=== PATIENT | female | born 1960 ===

== ENCOUNTER 2024-01-26 06:30 | Day surgery (SDC) | payer BC ==
[~2024-01-26 06:30] MED LIST: Sodium Chloride 0.9% 10 ML Syringe FLUSH PRN; Sodium Chloride 0.9% 10 ML Syringe FLUSH SCH
[2024-01-26] MEDS ORDERED: fentaNYL 100 MCG/2 ML SDV ONE (06:47)
[2024-01-26] MEDS ORDERED: Midazolam 1 MG/ML 2 ML SDV ONE (06:47)
[2024-01-26] MEDS ORDERED: Lidocaine 1% 2 ML ONE (06:48)
[2024-01-26] MEDS ORDERED: Rocuronium 50 MG/5 ML Vial ONE (06:49)
[2024-01-26] MEDS ORDERED: Propofol 200 MG/20 ML SDV ONE (06:49)
[2024-01-26] MEDS ORDERED: ceFAZolin 2 GM Vial ONE (06:50)
[2024-01-26] MEDS ORDERED: EPINEPHrine 1 MG/ML SDV ONE (06:53)
[2024-01-26] MEDS ORDERED: Ropivacaine 0.5% 5 MG/ML 30 ML SDV ONE (06:54)
[2024-01-26] MEDS: Lactated Ringers 1,000 ML IV SCH (07:00)
[2024-01-26 07:26] LABS: INR 0.97; PROTHROMBIN TIME 10.4 SECONDS (9.7-12.0)
[2024-01-26 07:28] LABS: PTT,PARTIAL THROMBOPLSTIN TIME 28.9 SECONDS (21.7-31.4)
[2024-01-26] MEDS ORDERED: fentaNYL 250 MCG/5 ML SDV ONE (08:47)
[2024-01-26] MEDS ORDERED: Ondansetron 4 MG/2 ML SDV ONE (09:13)
[2024-01-26] MEDS ORDERED: Ketorolac 30 MG/ML SDV ONE (09:13)
[2024-01-26] MEDS: Vancomycin 1 GM SDV ONE (09:15)
[2024-01-26] MEDS: Tranexamic Acid 1,000 MG/10 ML Vial ONE (09:15)
[2024-01-26] MEDS ORDERED: Lactated Ringers 1,000 ML ONE (09:17)
[2024-01-26] MEDS ORDERED: fentaNYL 100 MCG/2 ML SDV IVPUSH PRN (09:47)
[2024-01-26] MEDS ORDERED: HYDROmorphone 0.5 MG/0.5 ML Syringe IVPUSH PRN (09:47)
[2024-01-26] MEDS: oxyCODONE 5 MG Tab PO PRN (13:57)
== END 2024-01-26 13:45 | disposition home or self-care (01) ==
LOC: JD.SDS 06:30
PROVIDERS: ATTEND Orthopaedic Surgery
DX: M19.012 Primary osteoarthritis, left shoulder (principal); M75.102 Unspecified rotator cuff tear or rupture of left shoulder, not specified as traumatic; F33.1 Major depressive disorder, recurrent, moderate; F41.1 Generalized anxiety disorder; F17.200 Nicotine dependence, unspecified, uncomplicated; Z79.82 Long term (current) use of aspirin; Z79.899 Other long term (current) drug therapy
CPT/HCPCS: 23472; 36415; 64415; 76000; 85610; 85730; 97161; 97530; A9270; C1713; C1769; C1776; J0171; J0690; J1885; J2250; J2405; J2704; J2795; J3010; J3370; J7120; 01638; J3490